=== PATIENT | female | born 1990 ===

== ENCOUNTER 2025-01-19 05:20 | Day surgery (SDC) | payer OTHER ==
[2025-01-05 12:13] LABS: BASO % 1.2 % (0.1-1.2); EOS # 0.12 (0.04-0.54); EOS % 2.1 % (0.7-7.0); LYMPH # 2.06 (1.18-3.74); LYMPH % 36.5 % (19.3-53.1); MEAN PLATELET VOLUME 9.80 fl (9.4-12.4); MONO # 0.40 (0.24-0.82); MONO % 7.1 % (4.7-12.5); NEUT # 2.97 (1.56-6.13); NEUT % 52.6 % (34.0-71.1); RED CELL DISTRIBUTION WIDTH 11.9 % (11.6-14.4)
[2025-01-05 12:15] LABS: URINE APPEARANCE Cloudy; URINE BILIRRUBIN Negative (NEGATIVE); URINE BLOOD Small; URINE COLOR Yellow; URINE GLUCOSE Negative (NEGATIVE); URINE KETONE Negative (NEGATIVE); URINE LEUKOCYTE Trace; URINE NITRATE Positive; URINE PROTEIN Negative (NEGATIVE); URINE UROBILINOGEN 0.2 E.U./dl
[2025-01-05 12:18] LABS: URINE EPITHELIAL CELLS 38.6 uL (0.0-38.8); URINE RBC 48.8 uL (0.0-20.8); URINE WBC 37.3 uL (0.0-23.2)
[2025-01-05 12:21] LABS: URINE BACTERIA > 9821.5 uL (0.0-1933); URINE CAST 0.29 uL (0.0-1.40)
[2025-01-05 12:42] LABS: INR 1.04
[2025-01-05 12:51] LABS: ALT/SGPT 16.0 U/L (12-78); AST/SGOT 6.0 U/L (15-37); BILIRUBIN TOTAL 0.52 mg/dL (0.3-1.2); BUN CREA RATIO 22.0 (7.0-25.0); CREATININE SERUM 0.63 mg/dL (0.55-1.02); GFR 108.83; GLOBULINA 3.5 G/DL (2.4-3.5); GLUCOSE FASTING 86.0 mg/dL (65-100); OSMOLALITY SERUM 281.0 MOSM/KG (275-295)
[2025-01-05 13:52] VITALS: BP 107/73
[~2025-01-19] VITALS: Ht 162.6 cm; Wt 68.0 kg
[2025-01-19] MEDS ORDERED: LIDOCAINE HCL 1%/EPINEPHRINE 20ML VIAL IJ ONE (06:59)
[2025-01-19] MEDS ORDERED: DIBUCAINE 30 GM TUBE ONE (06:59)
[2025-01-19] MEDS ORDERED: POVIDONE-IODINE 118 ML BOTT TOP ONE (06:59)
[2025-01-19] MEDS ORDERED: BUPIVACAINE HCL/MPF 0.5% 30ML VIAL ONE (06:59)
[2025-01-19] MEDS ORDERED: HEMOSTATIC MATRIX 1 KIT KIT TOP ONE (06:59)
[2025-01-19] MEDS ORDERED: CEFTRIAXONE SODIUM 2,000 MG VIAL ONE (07:02)
[2025-01-19] MEDS ORDERED: METRONIDAZOLE/SODIUM CHLORIDE 500 MG/100 ML PIGGYBACK IV ONE (07:03)
[2025-01-19] MEDS ORDERED: INTESTINEX680 M1 PO (11:31)
[2025-01-19] MEDS ORDERED: CELECOXIB200 MG PO (11:31)
[2025-01-19] MEDS ORDERED: NEURONTIN300 MG PO (11:31)
[2025-01-19] MEDS ORDERED: PERCOCET 5-3251 EACH PO (11:31)
== END 2025-01-19 13:00 | disposition home or self-care (01) ==
LOC: CIR.AMB 05:20
PROVIDERS: ATTEND Surgery
DX: K64.2 Third degree hemorrhoids (principal); K64.4 Residual hemorrhoidal skin tags; K62.2 Anal prolapse; Z91.013 Allergy to seafood